=== PATIENT | male | born 1985 | race Caucasian/White ===

== ENCOUNTER 2019-02-14 11:22 | Emergency (ER) | payer OTHER ==
[~2019-02-14] VITALS: Ht 172.7 cm; Wt 107.5 kg
[2019-02-14 11:46] VITALS: BP 110/75; Ht 172.7 cm; Wt 107.5 kg
== END 2019-02-14 13:36 | disposition home or self-care (01) ==
LOC: ED 11:22
DX: J98.01 Acute bronchospasm (principal)
CPT/HCPCS: J7512; J7613; J7644; Q0092

== ENCOUNTER 2019-03-02 05:08 | Emergency (ER) | payer OTHER ==
[~2019-03-02] VITALS: Ht 172.7 cm; Wt 112.5 kg
[2019-03-02 05:12] VITALS: Ht 172.7 cm; Wt 112.5 kg
[2019-03-02 07:10] VITALS: BP 120/60
== END 2019-03-02 07:13 | disposition home or self-care (01) ==
LOC: ED 05:08
DX: J20.9 Acute bronchitis, unspecified (principal)
CPT/HCPCS: J7620

== ENCOUNTER 2019-04-02 15:28 | Emergency (ER) | payer OTHER ==
[~2019-04-02] VITALS: Ht 172.7 cm; Wt 103.4 kg
[2019-04-02 15:39] VITALS: BP 151/99; Ht 172.7 cm; Wt 103.4 kg
== END 2019-04-02 16:34 | disposition home or self-care (01) ==
LOC: ED 15:28
DX: R19.7 Diarrhea, unspecified (principal)

== ENCOUNTER 2019-10-14 13:02 | Emergency (ER) | payer SELFPAY ==
[~2019-10-14] VITALS: Ht 172.7 cm; Wt 54.4 kg
[2019-10-14 13:32] VITALS: BP 131/79; Ht 172.7 cm; Wt 54.4 kg
[2019-10-14 15:33] LABS: BASOPHIL % 0.5 % (0-2); PLATELET COUNT 255 x10^3mcL (130-400); RED CELL DISTRIBUTION WIDTH 12.9 % (11.5-14.5)
[2019-10-14 15:38] LABS: CALCIUM 8.8 mg/dL (8.5-10.1); CARBON DIOXIDE 29.5 mmol/L (21-32); CHLORIDE SERUM 101 mmol/L (98-107); CREATININE SERUM 0.9 mg/dL (0.7-1.3); GFR1 > 60 mL/min; GLUCOSE SERUM 97 mg/dL (74-106); POTASSIUM SERUM 4.3 mmol/L (3.5-5.1); SODIUM SERUM 138 mmol/L (136-145)
[2019-10-14 15:43] LABS: ALBUMIN 3.8 g/dL (3.4-5.0); ALKALINE PHOSPHATASE 77 U/L (46-116); ALT/SGPT 26 U/L (16-63); AST/SGOT 25 U/L (15-37); BILIRUBIN TOTAL 0.31 mg/dL (0.20-1.00); LIPASE 82 IU/L (73-393); TOTAL PROTEIN, SERUM 7.4 g/dL (6.4-8.2)
== END 2019-10-14 17:52 | disposition home or self-care (01) ==
LOC: ED 13:02
PROVIDERS: Emergency Medicine
DX: R10.10 Upper abdominal pain, unspecified (principal); R10.816 Epigastric abdominal tenderness; R11.2 Nausea with vomiting, unspecified; K92.1 Melena; R06.02 Shortness of breath; F15.10 Other stimulant abuse, uncomplicated